=== PATIENT | female | born 2000 | race Caucasian/White ===

== ENCOUNTER 2019-04-01 23:11 | Emergency (ER) | payer SELFPAY ==
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
[2019-04-02] MEDS: Azithromycin 500 MG Tab PO ONE (00:15)
== END 2019-04-02 00:25 | disposition home or self-care (01) ==
LOC: FB.ED 23:11
DX: O99.611 Diseases of the digestive system complicating pregnancy, first trimester (principal); K04.7 Periapical abscess without sinus; O99.331 Smoking (tobacco) complicating pregnancy, first trimester; Z88.0 Allergy status to penicillin; Z3A.01 Less than 8 weeks gestation of pregnancy
CPT/HCPCS: 99282; 99283; A9270

== ENCOUNTER 2019-07-09 01:56 | Inpatient (IN) | payer MEDICAID ==
[2019-07-09] MEDS ORDERED: Scopolamine 1.5 MG Transdermal Patch ONE (02:20)
[2019-07-09] MEDS ORDERED: Citric Acid/Sodium Citrate Solution 30 ML Cup ONE (02:20)
[2019-07-09] MEDS ORDERED: ceFAZolin 1 GM Vial IVPUSH ONE (02:35)
[2019-07-09] MEDS ORDERED: Scopolamine 1.5 MG Transdermal Patch TRDERM ONE (02:37)
[2019-07-09] MEDS ORDERED: Citric Acid/Sodium Citrate Solution 30 ML Cup PO ONE (02:37)
[2019-07-09] MEDS ORDERED: Naloxone 0.4 MG/ML SDV IVPUSH PRN (04:30)
[2019-07-09] MEDS ORDERED: ePHEDrine 50 MG/ML SDV IVPUSH PRN (04:30)
[2019-07-09] MEDS ORDERED: Morphine 2 MG/ML SYRINGE IVPUSH PRN (05:51)
[2019-07-09] MEDS ORDERED: Morphine 2 MG/ML SYRINGE ONE (06:10)
[2019-07-09] MEDS: Lactated Ringers 1,000 ML IV SCH ×3 (06:22→14:32)
--- NOTE | 2019-07-09 06:26 | OR ---
DATE OF OPERATION: 07/09/2019 SURGEON: Mikal Moody MD OPERATION: Repeat section, emergency. PREOPERATIVE DIAGNOSES: 1. Previous section, lower uterine segment. 2. Term . 3. Active labor. POSTOPERATIVE DIAGNOSES: 1. Repeat section, lower uterine segment, transverse. 2. Intrapartum hemorrhage. INSTALLATION MANAGER: Griffin Adler M.D. ANESTHESIA: Spinal. PERMIT: The patient accepted the risks and benefits of this procedure. She had come in, in labor and found to be 7 to 8 cm in dilatation. OPERATIVE DETAILS: In the OR, she was draped and prepped in the usual sterile fashion after epidural anesthesia was placed. She was placed in the supine position with a leftward tilt. A Pfannenstiel incision was made along the previous scar and carried all the way to the fascia, which was scored in the middle and extended laterally using Montse clamps. The muscles were tented and the fascia was dissected sharply on both inferior and superior aspects. The muscles were in the middle and the peritoneum was entered bluntly. Bladder blade was inserted and a reflection of the visceral peritoneum was placed in the lower uterine segment, which is very thin. After a small incision with a scalpel, the incision was carried laterally in a cephalad-caudad pulling with the surgeon's fingers. The baby's head was exposed, nuchal cord was reduced, and the baby was delivered. After the cord was cut and clamped, the baby was handed to the awaiting nurses. The uterus was exteriorized. Placenta removed by manual exploration. There was a large tear noted in the inferior portion of the incision, which required several stitches and several minutes of closure to obtain adequate hemostasis. The uterus incision was closed in 2 layers. Methergine 0.2 mg was given IV to control the hemorrhage and at least 10 stitches of [id number] were placed in the inferior portion. The uterus was then returned to the maternal abdomen and after ascertaining the bleeding had stopped, irrigation was performed, and then the rectus fascia was closed in 1 continuous layer of 0 Vicryl. The subcutaneous tissue and skin were closed with lj. Estimated Blood loss 1200 cc.The count for laps, instrument, and sponges was correct x3. The patient received 2 g of Ancef preop. Postoperatively, she was stable, urine was clear in the urinary bag, and vital signs were normal. /[id number] SANJAY/BARBARA KRISHNAN
[2019-07-09] MEDS: diphenhydrAMINE 50 MG/ML SDV IVPUSH PRN ×2 (07:38→15:51)
[2019-07-09] MEDS ORDERED: ePHEDrine 50 MG/ML SDV IV ONE (13:03)
[2019-07-09] MEDS ORDERED: Ondansetron 4 MG/2 ML SDV IVPUSH ONE (13:03)
[2019-07-09] MEDS ORDERED: Morphine PF 10 MG/10 ML SDV IV ONE (13:03)
[2019-07-09] MEDS ORDERED: Methylergonovine 0.2 MG/1 ML Amp IV ONE (13:03)
[2019-07-09] MEDS ORDERED: Oxytocin 10 Units/1 ML SDV IV ONE (13:03)
[2019-07-09] MEDS ORDERED: Lactated Ringers 1,000 ML IV ONE (13:03)
[2019-07-09] MEDS ORDERED: Midazolam 1 MG/ML 2 ML SDV IV ONE (13:03)
[2019-07-09] MEDS: Ketorolac 30 MG/ML SDV IVPUSH PRN (15:50)
[2019-07-10] MEDS: Lactated Ringers 1,000 ML IV SCH (03:48)
[2019-07-10] MEDS: Ketorolac 30 MG/ML SDV IVPUSH PRN (03:48)
[2019-07-10] MEDS ORDERED: Acetaminophen/HYDROcodone 325-5 MG Tab PO PRN (06:21)
--- NOTE | 2019-07-10 06:21 | PCM.PNPP ---
- General Info Date of Service: 07/10/19 Subjective Update: Had had some dizziness. No bleeding Functional Status: Reports: Pain Controlled - Review of Systems General: Reports: No Symptoms HEENT: Reports: No Symptoms Pulmonary: Reports: No Symptoms Cardiovascular: Reports: No Symptoms Gastrointestinal: Reports: No Symptoms Genitourinary: Reports: No Symptoms Musculoskeletal: Reports: No Symptoms Skin: Reports: No Symptoms Neurological: Reports: No Symptoms Psychiatric: Reports: No Symptoms - General Info Date of Service: 07/10/19 - Patient Data Vital Signs - Most Recent: Last Vital Signs Temp 98.5 F 07/09/19 16:00 Pulse 80 07/09/19 23:00 Resp 18 07/09/19 23:00 BP 88/37 L 07/09/19 23:00 Pulse Ox 100 07/09/19 23:00 Weight - Most Recent: 67.132 kg I&O - Last 24 Hours: Intake & Output 07/09/19 07/09/19 07/10/19 14:59 22:59 06:59 Intake Total 4013 Output Total 1600 Balance 4013 -1600 Lab Results - Last 24 Hours: Laboratory Results - last 24 hr 07/09/19 07/09/19 Range/Units 03:29 18:30 WBC 10.5 (4.5-12.0) X10-3/uL RBC 3.39 (3.23-5.20) x10(6)uL Hgb 8.7 L (11.5-15.5) g/dL Hct 25.8 L (30.0-51.3) % MCV 76.2 L (80-96) fL MCH 25.5 L (27.7-33.6) pg MCHC 33.5 (32.2-35.4) g/dL RDW 15.2 (11.5-15.5) % Plt Count 142 (125-369) X10(3)uL MPV 7.6 (7.4-10.4) fL Neut % (Auto) 80.1 (46-82) % Lymph % (Auto) 12.5 L (13-37) % Kendall % (Auto) 6.2 (4-12) % Eos % (Auto) 1 (1.0-5.0) % Baso % (Auto) 0 (0-2) % Neut # (Auto) 8.4 H (1.6-8.3) # Lymph # (Auto) 1.3 (0.6-5.0) # Kendall # (Auto) 0.7 (0.0-1.3) # Eos # (Auto) 0.1 (0.0-0.8) # Baso # (Auto) 0.0 (0.0-0.2) # Blood Type A NEGATIVE Gel Antibody Screen Negative Rhogam Indicated Yes, baby rh pos Med Orders - Current: Current Medications Diphenhydramine HCl (Benadryl) 25 mg IVPUSH Q6H PRN PRN Reason: Itching or Nausea Last Admin: 07/09/19 15:51 Dose: 25 mg Ephedrine Sulfate (Ephedrine Sulfate) 5 mg IVPUSH ASDIRECTED PRN PRN Reason: Other Hydroxyzine Pamoate (Vistaril) 50 mg PO TID PRN PRN Reason: Itching Last Admin: 07/09/19 20:57 Dose: 50 mg Lactated Ringer's (Ringers, Lactated) 1,000 mls @ 250 mls/hr IV ASDIRECTED MARIANELA Last Admin: 07/10/19 03:48 Dose: 250 mls/hr Ketorolac Tromethamine (Toradol) 30 mg IVPUSH Q6H PRN PRN Reason: Pain Stop: 07/14/19 14:49 Last Admin: 07/10/19 03:48 Dose: 30 mg Miscellaneous Information (Remove Patch) 1 ea TRDERM ONETIME ONE Stop: 07/12/19 05:01 Morphine Sulfate (Morphine) 2 mg IVPUSH Q2H PRN PRN Reason: Pain Last Admin: 07/09/19 06:22 Dose: 2 mg Naloxone HCl (Narcan) 0.1 mg IVPUSH ONETIME PRN PRN Reason: Respiratory Depression Discontinued Medications Cefazolin Sodium (Ancef) 2 gm IVPUSH ONETIME ONE Stop: 07/09/19 02:36 Last Admin: 07/09/19 08:33 Dose: 2 gm Citric Acid/Sodium Citrate (Bicitra Solution) 30 ml PO ONETIME ONE Stop: 07/09/19 02:38 Last Admin: 07/09/19 08:33 Dose: 30 ml Citric Acid/Sodium Citrate (Bicitra Solution) Confirm Administered Dose 30 ml .ROUTE .STK-MED ONE Stop: 07/09/19 02:21 Last Admin: 07/09/19 08:03 Dose: Not Given Hydroxyzine Pamoate (Vistaril) 50 mg PO TID MARIANELA Morphine Sulfate (Morphine) Confirm Administered Dose 2 mg .ROUTE .STK-MED ONE Stop: 07/09/19 06:11 Last Admin: 07/09/19 08:07 Dose: Not Given Scopolamine (Transderm-Scop) 1.5 mg TRDERM ONETIME ONE Stop: 07/09/19 02:38 Last Admin: 07/09/19 02:35 Dose: 1.5 mg Scopolamine (Transderm-Scop) Confirm Administered Dose 1.5 mg .ROUTE .STK-MED ONE Stop: 07/09/19 02:21 Last Admin: 07/09/19 08:03 Dose: Not Given - Infant Interaction Infant Disposition, : Mary Alice at Bedside Infant Interaction: Holding Infant Feeding: Attempted ; Nursed Fair/Poor Support Person: Mother - Recovery Exam Fundal Tone: Firm Fundal Level: At Umbilicus Fundal Placement: Midline Lochia Amount: Small Lochia Color: Rubra/Red Urinary Elimination: Indwelling Catheter - Exam General: Alert, Oriented HEENT: Pupils Equal Neck: Supple Lungs: Clear to Auscultation, Normal Respiratory Effort Cardiovascular: Regular Rate, Regular Rhythm GI/Abdominal Exam: Normal Bowel Sounds, Soft, Non-Tender, No Organomegaly, No Distention, No Abnormal Bruit, No Mass, Pelvis Stable Extremities: Normal Inspection, Normal Range of Motion, Non-Tender, No Pedal Edema, Normal Capillary Refill Skin: Warm, Dry, Intact Wound/Incisions: Healing Well Neurological: No New Focal Deficit Psy/Mental Status: Alert, Normal Affect, Normal Mood - Problem List & Annotations (1) exam SNOMED Code(s): 527405560, 087984754 Code(s): Z39.2 - ENCOUNTER FOR ROUTINE FOLLOW-UP Status: Acute Current Visit: Yes (2) hemorrhage SNOMED Code(s): 62052438 Code(s): O72.1 - OTHER IMMEDIATE HEMORRHAGE Status: Acute Current Visit: Yes - Problem List Review Problem List Initiated/Reviewed/Updated: Yes - My Orders Last 24 Hours: My Active Orders 07/09/19 05:51 Morphine 2 mg IVPUSH Q2H PRN 07/09/19 14:49 Ketorolac [Toradol] 30 mg IVPUSH Q6H PRN 07/09/19 18:25 RH IMMUNE GLOBULIN [BBK] Routine 07/09/19 20:11 hydrOXYzine pamoate [Vistaril] 50 mg PO TID PRN 07/09/19 Dinner Clear Liquid Diet [DIET] 07/10/19 05:11 CBC WITH AUTO DIFF [HEME] AM 07/12/19 05:00 Remove Patch 1 ea OMARDERM ONETIME ONE - Plan Plan:: DC fluids.Start oral Narcotics.NSAIDs.Remove Diaz
[2019-07-10] MEDS: Ibuprofen 600 MG Tab PO SCH ×3 (10:50→21:14)
[2019-07-10] MEDS: Docusate Sodium 100 MG Cap PO SCH ×2 (14:50→21:14)
[2019-07-11] MEDS: Ibuprofen 600 MG Tab PO SCH ×2 (04:30→09:51)
[2019-07-11] MEDS: Docusate Sodium 100 MG Cap PO SCH (09:50)
--- NOTE | 2019-07-11 12:45 | DISCH ---
DISCHARGE DATE: 07/11/2019 REASON FOR ADMISSION: 1. Active labor. 2. Previous section. DISCHARGE DIAGNOSIS: 1. Repeat lower uterine segment section. 2. Postoperative anemia due to intrapartum hemorrhage. BRIEF HISTORY: This is a 18-year-old female who was G3, P2, came in at 38+ weeks in active labor of necessity. We went into the operating room for repeat section, which was done by myself and Dr. Adler and live female delivered on the . She did have significant bleeding during the procedure, which needed some ephedrine to control and hemoglobin dropped from 10.5 to 8.6. Postoperatively, she had some hypotension with symptoms of dizziness, needing IV fluid resuscitation. At the time of discharge, hemoglobin was 8.6. DISCHARGE MEDICATIONS: 1. Motrin 800 mg p.o. t.i.d. p.r.n. 2. vitamins. FOLLOWUP: Within 2 weeks in the office. DISCHARGE TIME: More than 35 minutes. /[id number] SANJAY/BARBARA
--- NOTE | 2019-07-15 07:53 | PCM.LDHP ---
L&D History of Present Illness - General Date of Service: 07/09/19 Admit Problem/Dx: Patient Status Order with Admit Dx/Problem 07/09/19 01:57 Admission Status [Patient Status] [ADT] Routine 07/09/19 02:01 Patient Status [ADT] Routine Admission Diagnosis/Problem Admission Diagnosis/Problem Source of Information: Patient History Limitations: Reports: No Limitations - History of Present Illness Introduction:: 18 yo femaale scheduled for C section next week came in labor Timing/Duration: Reports: sudden onset, constant/continuous Location, : Reports: Pelvic Quality: Reports: Ache Pain Score: 0 Improves with: Reports: None Associated Symptoms: Denies: vaginal bleeding, vaginal fluid, mild amount, moderate amount - Related Data Allergies/Adverse Reactions: Allergies Allergy/AdvReac Type Severity Reaction Status Date / Time Penicillins Allergy Rash Verified 07/09/19 02:36 Home Medications: Home Meds Pnv No.95/Ferrous Fum/Folic AC [ Tablet] 1 each PO DAILY 04/01/19 [ History] Ibuprofen [Motrin] 600 mg PO Q6H #30 tablet 07/11/19 [Rx] 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: Neurological History: Reports: Brain Injury - Past Surgical History Female Surgical History: Reports: Section Social & Family History - Family History Family Medical History: Noncontributory - Tobacco Use Smoking Status *Q: Current Every Day Smoker Years of Tobacco use: 4 Packs/Tins Daily: 201 Used Tobacco, but Quit: No Second Hand Smoke Exposure: No - Caffeine Use Caffeine Use: Reports: None - Recreational Drug Use Recreational Drug Use: No - Living Situation & Occupation Living situation: Reports: with Significant Other H&P Review of Systems - Review of Systems: Review Of Systems: Comprehensive ROS is negative, except as noted in HPI. L&D Exam - Exam Exam: See Below - Vital Signs Vital Signs: Last Vital Signs Temp 97.4 F 07/11/19 07:45 Pulse 98 07/11/19 07:45 Resp 16 07/11/19 07:45 BP 98/60 07/11/19 07:45 Pulse Ox 100 07/11/19 07:45 Weight: 67.132 kg - OB Specific Contraction Duration (sec): 30-90 Contraction Frequency (min): 2 Contraction Intensity: Moderate to Strong - Exam General: Alert, Oriented HEENT: PERRLA, Conjunctiva Clear, EACs Clear, EOMI, Hearing Intact, Mucosa Moist & [place], Nares Patent, Normal Nasal Septum, Posterior Pharynx Clear, TMs Clear Neck: Supple, Trachea Midline Lungs: Clear to Auscultation, Normal Respiratory Effort Cardiovascular: Regular Rate, Regular Rhythm GI/Abdominal Exam: Normal Bowel Sounds, Soft, Non-Tender, No Organomegaly, No Distention, No Abnormal Bruit, No Mass, Pelvis Stable Rectal Exam: Normal Exam, Normal Rectal Tone Genitourinary: Normal external exam, Normal bimanual exam, Normal speculum exam Back Exam: Normal Inspection, Full Range of Motion Extremities: Normal Inspection, Normal Range of Motion, Non-Tender, No Pedal Edema, Normal Capillary Refill Skin: Warm, Dry, Intact Neurological: Cranial Nerves Intact, Reflexes Equal Bilateral Psychiatric: Alert, Normal Affect, Normal Mood - Patient Data Result Diagrams: 07/10/19 06:15 - Problem List (1) Previous section SNOMED Code(s): 381130404 ICD Code: Z98.891 - HISTORY OF UTERINE SCAR FROM PREVIOUS SURGERY Status: Acute (2) exam SNOMED Code(s): 665454047, 873354291 ICD Code: Z39.2 - ENCOUNTER FOR ROUTINE FOLLOW-UP Status: Acute (3) hemorrhage SNOMED Code(s): 85668642 ICD Code: O72.1 - OTHER IMMEDIATE HEMORRHAGE Status: Acute Qualifiers: hemorrhage type: third-stage Qualified Code(s): O72.0 - Third- stage hemorrhage Problem List Initiated/Reviewed/Updated: Yes Assessment/Plan Comment:: C section to be done expeditiously
== END 2019-07-11 13:04 | disposition home or self-care (01) | DRG 787 ==
LOC: FB.OBCHECK 01:56 → FB.OB 01:57 → FB.OBCHECK 02:38
PROVIDERS: ADMIT Family Medicine; ATTEND Family Medicine
PROC: 10D00Z1 Extraction of Products of Conception, Low, Open Approach (ICD-10-PCS; principal; 2019-07-09)
DX: O34.211 Maternal care for low transverse scar from previous cesarean delivery (principal); O72.1 Other immediate postpartum hemorrhage; O99.02 Anemia complicating childbirth; O90.89 Other complications of the puerperium, not elsewhere classified; I95.81 Postprocedural hypotension; O67.9 Intrapartum hemorrhage, unspecified; Z37.0 Single live birth; Z3A.38 38 weeks gestation of pregnancy
CPT/HCPCS: 36415; 85025; 85460; 86850; 86900; 86901; 88307; 94150; 99211; A9270-GY; J0690; J1200; J1885; J2210; J2250; J2270; J2405; J2590; J2790; J7120

== ENCOUNTER 2019-08-15 23:37 | Emergency (ER) | payer MEDICAID ==
[2019-08-15] MEDS ORDERED: Azithromycin 500 MG Tab PO ONE (23:57)
--- NOTE | 2019-08-16 00:02 | EDM.PDOC ---
ED HPI GENERAL MEDICAL PROBLEM - General Chief Complaint: General Stated Complaint: SORE THROAT Time Seen by Provider: 08/15/19 23:50 Source of Information: Reports: Patient History Limitations: Reports: No Limitations - History of Present Illness INITIAL COMMENTS - FREE TEXT/NARRATIVE: Patient presented to the ED because of sore throat, denies any fever or chills, coughing or dyspnea. 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 - Past Surgical History Female Surgical History: Reports: Section Social & Family History - Family History Family Medical History: Noncontributory - Caffeine Use Caffeine Use: Reports: None - Living Situation & Occupation Living situation: Reports: with Significant Other ED ROS GENERAL - Review of Systems Review Of Systems: See Below Constitutional: Reports: No Symptoms HEENT: Reports: Throat Pain Respiratory: Reports: No Symptoms Cardiovascular: Reports: No Symptoms Endocrine: Reports: No Symptoms GI/Abdominal: Reports: No Symptoms : Reports: No Symptoms Musculoskeletal: Reports: No Symptoms Skin: Reports: No Symptoms Neurological: Reports: No Symptoms Psychiatric: Reports: No Symptoms Hematologic/Lymphatic: Reports: No Symptoms ED EXAM, GENERAL - Physical Exam Exam: See Below Exam Limited By: No Limitations General Appearance: Alert, No Apparent Distress Eye Exam: Bilateral Eye: PERRL Ears: Normal External Exam, Normal Canal, Hearing Grossly Normal Nose: Normal Inspection, Normal Mucosa, No Blood Throat/Mouth: Normal Inspection, Normal Lips, Normal Teeth, Other (exudatse on the right pahrynx) Head: Atraumatic, Normocephalic Neck: Normal Inspection, Supple, Non-Tender, Full Range of Motion Respiratory/Chest: No Respiratory Distress, Lungs Clear, Normal Breath Sounds Cardiovascular: Normal Peripheral Pulses, Regular Rate, Rhythm, No Edema GI/Abdominal: Normal Bowel Sounds, Soft, Non-Tender Back Exam: Normal Inspection, Full Range of Motion Course - Vital Signs Text/Narrative:: zithromax 500 mg po x1 reassurance3 Last Recorded V/S: Last Vital Signs Temp 36.7 C 08/15/19 23:50 Pulse 83 08/15/19 23:50 Resp 17 08/15/19 23:50 BP 105/70 08/15/19 23:50 Pulse Ox 100 08/15/19 23:50 - Orders/Labs/Meds Meds: Medications Discontinued Medications Generic Name Dose Route Start Last Admin Trade Name Dario PRN Reason Stop Dose Admin Azithromycin 500 mg 08/15/19 23:57 08/16/19 00:04 Zithromax PO 08/15/19 23:58 500 mg ONETIME ONE Administration Departure - Departure Time of Disposition: 00:05 Disposition: Home, Self-Care 01 Condition: Good Clinical Impression: Exudative pharyngitis - Discharge Information Prescriptions: Azithromycin [Zithromax] 250 mg PO DAILY #6 tablet Instructions: Pharyngitis Referrals: Mikal Moody MD [Primary Care Provider] - Forms: ED Department Discharge Additional Instructions: please read discharge instructions on pharyngitis Increase oral fluids Z-terrell as directed Take ibuprofen 800 mg with tylenol 1000 mg every 8 hours as needed for pain follow up as needed Sepsis Event Note - Evaluation Sepsis Screening Result: No Definite Risk - Focused Exam Vital Signs: Vital Signs Temp Pulse Resp BP Pulse Ox 08/15/19 23:50 36.7 C 83 17 105/70 100 Date Exam was Performed: 08/16/19 Time Exam was Performed: 00:14
== END 2019-08-16 00:08 | disposition home or self-care (01) ==
LOC: FB.ED 23:37
DX: J02.9 Acute pharyngitis, unspecified (principal); Z88.0 Allergy status to penicillin
CPT/HCPCS: 99282; A9270

== ENCOUNTER 2020-10-11 19:24 | Emergency (ER) | payer MEDICAID ==
[2020-10-11] MEDS: Sulfamethoxazole/Trimethoprim 800-160 MG Tab PO ONE (20:07)
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
[2020-10-11] MEDS: Diphtheria,Pertussis(Acell),Tetanus Vaccine 0.5 ML Syringe IM ONE (20:20)
== END 2020-10-11 20:30 | disposition home or self-care (01) ==
LOC: FB.ED 19:24
DX: L25.3 Unspecified contact dermatitis due to other chemical products (principal); Z23 Encounter for immunization; Z88.0 Allergy status to penicillin
CPT/HCPCS: 90471; 90715; 99283; A9270-GY

== ENCOUNTER 2022-10-05 13:36 | Emergency (ER) | payer MEDICAID ==
[2022-10-05 14:07] LABS: APPEARANCE,URINE CLOUDY (CLEAR); BILIRUBIN,URINE NEGATIVE (NEGATIVE); COLOR,URINE YELLOW (YELLOW); GLUCOSE,URINE NORMAL (NORMAL); KETONES,URINE NEGATIVE (NEGATIVE); LEUKOCYTE ESTERASE,URINE LARGE (NEGATIVE); NITRITE,URINE NEGATIVE (NEGATIVE); OCCULT BLOOD,URINE LARGE (NEGATIVE); PROTEIN,URINE 500 mg/dL (NEGATIVE); RBC,URINE >100 (0-5); UROBILINOGEN,URINE NORMAL (NEGATIVE)
[2022-10-05] MEDS ORDERED: Ondansetron 4 MG/2 ML SDV IVPUSH ONE (14:07)
[2022-10-05 14:08] LABS: BACTERIA,URINE MANY (NS); SQUAMOUS EPITHELIAL CELLS,UR FEW (NS,R,O); WBC,URINE >100 (0-5)
[2022-10-05] MEDS ORDERED: Morphine 4 MG/ML VIAL IVPUSH ONE (14:08)
[2022-10-05 14:28] LABS: BASOPHILS ABSOLUTE AUTO 0.1 x10-3/uL (0.0-0.1); BASOPHILS PERCENT AUTO 0.6 % (0.2-1.5); EOSINOPHILS ABSOLUTE AUTO 0.1 x10-3/uL (0.0-0.8); EOSINOPHILS PERCENT AUTO 0.4 % (0.6-8.1); HEMATOCRIT 43.6 % (34.2-48.2); HEMOGLOBIN 15.2 g/dL (11.4-15.5); LYMPHOCYTES ABSOLUTE AUTO 1.9 x10-3/uL (1.0-4.4); LYMPHOCYTES PERCENT AUTO 13.2 % (18.4-52.1); MEAN CORPUSCULAR HEMOGLOBIN 31.2 pg (23.9-33.9); MEAN CORPUSCULAR HGB CONC 34.9 g/dL (31.9-34.8); MEAN CORPUSCULAR VOLUME 89.2 fL (76.7-100.5); MEAN PLATELET VOLUME 8.6 fL (7.1-12.4); MONOCYTES ABSOLUTE AUTO 0.8 x10-3/uL (0.3-1.0); MONOCYTES PERCENT AUTO 5.4 % (4.4-15.7); NEUTROPHILS ABSOLUTE AUTO 11.4 x10-3/uL (1.5-6.3); NEUTROPHILS PERCENT AUTO 80.4 % (30.8-76.2); PLATELET COUNT,PLT 222 x10(3)uL (151-488); RED BLOOD CELL COUNT 4.89 x10(6)uL (3.60-5.20); RED CELL DISTRIBUTION WIDTH 13.1 % (12.3-16.5); WHITE BLOOD CELL COUNT,WBC 14.2 x10-3/uL (3.0-10.3)
[2022-10-05 14:32] LABS: BLOOD UREA NITROGEN,BUN 12 mg/dL (7-18); CALCIUM 9.5 mg/dL (8.6-10.2); CARBON DIOXIDE,CO2 23 mmol/L (21-32); CHLORIDE,CL 103 mmol/L (100-110); CREATININE 0.8 mg/dL (0.55-1.02); EST CRCL DRUG DOSING (CG) 101.51 mL/min; ESTIMATED GFR 105 mL/min (>60); GLUCOSE RANDOM 98 mg/dL (80-116); POTASSIUM,K 4.8 mmol/L (3.5-5.3); SODIUM,NA 137 mmol/L (135-145)
[2022-10-05 14:41] LABS: LACTIC ACID 0.7 mmol/L (0.4-2.0)
[2022-10-05 14:43] LABS: A/G RATIO 1.1; ALANINE AMINOTRANSFERASE,ALT 22 U/L (12-36); ALBUMIN 4.1 g/dL (3.5-5.2); ALKALINE PHOSPHATASE 56 IU/L (56-112); ASPARTATE AMNIOTRANSFERASE,AST 36 IU/L (5-25); BILIRUBIN TOTAL 1.9 mg/dL (0.1-1.3); PROTEIN TOTAL,TP 7.9 g/dL (6.0-8.0)
[2022-10-05] MEDS ORDERED: cefTRIAXone 2 GM Vial IVPUSH ONE (14:59)
[2022-10-05] MEDS ORDERED: Iopamidol 755 Mg/ML 100 ML Bottle IV ONE (15:14)
[2022-10-05] MEDS ORDERED: Sodium Chloride 0.9% 1,000 ML IV SCH (15:15)
[2022-10-05] MEDS ORDERED: Doxycycline 100 MG in Sodium Chloride 0.9% 100 ML IV ONE (15:24)
[2022-10-05] MEDS ORDERED: Doxycycline 100 MG Vial ONE (16:29)
[2022-10-05] MEDS ORDERED: Phenazopyridine 95 MG Tab PO STA (16:56)
[2022-10-05] MEDS ORDERED: Phenazopyridine 95 MG Tab PO SCH (19:00)
[2022-10-07 09:12] LABS: HIV AB/P24 AG SCREEN Non Reactive (Non Reactive)
[2022-10-08 04:12] LABS: CHLAMYDIA TRACHOMATIS, NAA Negative (Negative); NEISSERIA GONORRHOEAE, NAA Negative (Negative)
== END 2022-10-05 17:49 | disposition admitted as inpatient to this hospital (09) ==
LOC: FB.ED 13:36
DX: N39.0 Urinary tract infection, site not specified (principal); Z88.0 Allergy status to penicillin; Z91.041 Radiographic dye allergy status
CPT/HCPCS: 36415; 74176; 80053; 81001; 81025; 83605; 83735; 85025; 86140; 87040; 87086; 87088; 87186; 87389; 87491; 87591; 96361; 96365; 96375; 99285; A9270; J0696; J2270; J2405; J3490; J7030

== ENCOUNTER 2022-11-20 19:09 | Emergency (ER) | payer MEDICAID ==
[2022-11-20 20:38] LABS: BILIRUBIN,URINE NEGATIVE (NEGATIVE); GLUCOSE,URINE NORMAL (NORMAL); KETONES,URINE NEGATIVE (NEGATIVE); LEUKOCYTE ESTERASE,URINE LARGE (NEGATIVE); NITRITE,URINE NEGATIVE (NEGATIVE); OCCULT BLOOD,URINE NEGATIVE (NEGATIVE); PROTEIN,URINE NEGATIVE (NEGATIVE); UROBILINOGEN,URINE 4 mg/dL (NEGATIVE)
[2022-11-20 20:39] LABS: APPEARANCE,URINE CLEAR (CLEAR); BACTERIA,URINE FEW (NS); COLOR,URINE YELLOW (YELLOW); SQUAMOUS EPITHELIAL CELLS,UR OCCASIONAL (NS,R,O)
[2022-11-20] MEDS ORDERED: Sulfamethoxazole/Trimethoprim 800-160 MG Tab PO ONE (21:30)
[2022-11-20] MEDS ORDERED: Doxycycline 100 MG Tab PO ONE (21:30)
[2022-11-24 08:08] LABS: CHLAMYDIA TRACHOMATIS, NAA Positive (Negative); NEISSERIA GONORRHOEAE, NAA Negative (Negative)
== END 2022-11-20 21:51 | disposition home or self-care (01) ==
LOC: FB.ED 19:09
DX: N39.0 Urinary tract infection, site not specified (principal); N89.8 Other specified noninflammatory disorders of vagina; Z88.0 Allergy status to penicillin; Z91.041 Radiographic dye allergy status
CPT/HCPCS: 81001; 87086; 87088; 87186; 87491; 87591; 87651-QW; 99284; A9270-GY